=== PATIENT | male | born 1940 | race Caucasian/White ===

== ENCOUNTER → 2018-06-23 | Outpatient (CLI) | payer OTHER | LOC: CIMAGING 13:19 | PROVIDERS: ATTEND Internal Medicine | DX: R41.3 Other amnesia (principal); Z91.81 History of falling | CPT/HCPCS: 70450-PO ==

== ENCOUNTER → 2018-07-18 | Outpatient (CLI) | payer OTHER | LOC: CIMAGING 12:52 | PROVIDERS: ATTEND Internal Medicine | DX: M19.042 Primary osteoarthritis, left hand (principal) | CPT/HCPCS: 73120-PO ==